=== PATIENT | female | born 1950 | race Asian ===

== ENCOUNTER → 2018-12-18 | Outpatient (CLI) | payer OTHER ==
[~2018-12-18] MED LIST: CLARITIN10 M2 PO; DESOXIMETASONE15 G1 TOP; PREDNISONE 10 M10 MG PO; PROTONIX40 M1 PO; TYLENOL325 MG PO; ZANTAC 7575 MG PO; ZEBETA5 MG PO; ZIAC 2.5/6.252.5 M1 PO; ZITHROMAX1 GM PO; ZOCOR 20 MG TAB20 M1 PO; ZYRTEC10 M5 PO
== END ==
LOC: RAD 10:48
DX: Z12.31 Encounter for screening mammogram for malignant neoplasm of breast (principal)